=== PATIENT | male | born 1935 | race Asian ===

== ENCOUNTER 2022-03-07 18:15 | Emergency (ER) | payer OTHER, MEDICARE ==
[~2022-03-07] VITALS: Ht 152.4 cm; Wt 55.0 kg
[2022-03-07 18:15] VITALS: BP 0/0
== END 2022-03-07 19:52 ==
LOC: EDBD 18:15 → ER 18:15
DX: I46.9 Cardiac arrest, cause unspecified (principal); R41.82 Altered mental status, unspecified; R06.89 Other abnormalities of breathing
CPT/HCPCS: 31500; 92950